=== PATIENT | male | born 1965 | race African-American/Black ===

== ENCOUNTER 2016-11-07 09:55 | Day surgery (SDC) | payer OTHER ==
[~2016-11-07] VITALS: Ht 188 cm; Wt 87.5 kg
== END 2016-11-07 13:05 | disposition short-term general hospital (02) ==
LOC: SURGOP
PROC: 0DBE8ZZ Excision of Large Intestine, Via Natural or Artificial Opening Endoscopic (ICD-10-PCS; principal; 2016-11-07)
DX: Z12.11 Encounter for screening for malignant neoplasm of colon (principal); K63.5 Polyp of colon; K64.9 Unspecified hemorrhoids; I10 Essential (primary) hypertension; F17.210 Nicotine dependence, cigarettes, uncomplicated; Z80.0 Family history of malignant neoplasm of digestive organs; Z88.0 Allergy status to penicillin; Z79.899 Other long term (current) drug therapy
CPT/HCPCS: J2175; J2250